=== PATIENT | male | born 1950 | race Caucasian/White ===

== ENCOUNTER 2017-02-17 13:30 | Day surgery (SDC) | payer MEDICARE, OTHER ==
[~2017-02-17] VITALS: Ht 180.3 cm; Wt 82.0 kg
[~2017-02-17 13:30] MED LIST: ASPI-973 PO; ATOR80TA PO; CHOL10008 PO; FLUT16SP NS; HYDR25TA4 PO; Lactated Ringer's 1,000 ML IV ONE
[2017-02-17] MEDS ORDERED: Propofol 10,000 mCg/mL 20 mL Inj ONE (13:31)
[2017-02-17 14:38] VITALS: BP 137/80; PULSE 55; O2SAT 98
[2017-02-17] MEDS ORDERED: Lactated Ringer's 1,000 ML IV SCH (15:29)
[2017-02-17] MEDS ORDERED: Ondansetron 2 mg/mL 2 mL Inj IVPUSH PRN (15:30)
[2017-02-17] MEDS ORDERED: MetoCLOpramide 5 mg/mL 2 mL Inj IVPUSH PRN (15:30)
[2017-02-17 15:41] VITALS: BP 124/77; PULSE 53; RESP 16; O2SAT 98
[2017-02-17 15:51] VITALS: BP 134/76; PULSE 49; O2SAT 99
[2017-02-17 15:55] VITALS: BP 137/83; PULSE 47; RESP 16; O2SAT 99
--- NOTE | 2017-02-17 17:24 | PCM.ANEP1 ---
Post Anesthesia PACU Phase 1 Assessment Vital Signs Vital Signs Date Time Temp Pulse Resp B/P Pulse Ox O2 Delivery O2 Flow Rate FiO2 02/17/17 15:55 47 16 137/83 99 Room Air 02/17/17 15:51 49 134/76 99 Room Air 02/17/17 15:41 36.1 53 16 124/77 98 Room Air 02/17/17 14:38 55 137/80 98 Room Air Anesthetic Administered: MAC Level of Alertness: Awake, talking WRIGHT's with Equal Strength: Yes Pain: No Nausea or Vomiting: No CV Function and Hydration: No Airway Device: none Oxygen Delivery: Room Air Lungs: Normal Air Movement Dermatome Level: Full Sensation PACU Phase 2 Assessment Complications: No Follow up Care: N/A Patient Instructions Provided: N/A Jose Castillo MD February 17, 2017 17:24
--- NOTE | 2017-02-17 17:24 | PCM.HPANE ---
Patient Data Surgeon Admitting Provider: Attending Provider:Lisa Joseph MD Primary Care Physician:Saritha Sullivan MD Other Provider:Jero Escamilla Anesthesia Reason for Visit Adenomatous Polyp Of Colon Ht/WT & BMI Body Mass Index Allergies Coded Allergies: No Known Drug Allergies (Verified Allergy, Unknown, 02/16/17) Past Anesthesia History Anesthesia History: Denies:: Abnormal Airway, Anesthesia Reactions, Difficult Intubation, Fam Anesthesia Reaction, Fam Malignant Hypertherm, Malignant Hyperthermia Medications Reported Medications Cholecalciferol (Vitamin D3) (Vitamin D3)1,000 Unit Tab.chew1,000 Unit PO 02/16/17 Hydrochlorothiazide 25 Mg [id number] Mg PO DAILY 30 Days Ref 0 02/16/17 Atorvastatin (Lipitor)80 Mg Enivnj16 Mg PO DAILY Ref 0 02/16/17 Aspirin 81 Mg Kodgqm97 Mg PO DAILY Ref 0 02/16/17 Discontinued Reported Medications Fluticasone Propionate (Fluticasone Propionate Nasal)16 Gm [place].susp2 [place] NS BID #16 GM Ref 0 02/16/17 History History of ENT Problems?: No HEENT History: Denies:: Abnormal Airway Cataracts Difficult Intubation Dysphagia Glaucoma Hearing Problem Sinus Problem TMJ Denture Type: None Teeth Condition: Within Normal Limits Hx of Heart Problems?: No Cardiovascular History: Denies:: AICD Abdominal Aortic Aneurism Atrial Fibrillation Cardiac Surgery Chest Pain Congestive Heart Failure Coronary Artery Disease Edema Heart Murmur Hypertension Irregular Heartbeat Pacemaker Peripheral Vascular Rheumatic Fever Thrombophlebitis Valvular Heart Disease Hx of Respiratory Problem?: No Respiratory History: Denies:: Asthma COPD Chest Surgery Cough Dyspnea Emphysema Hemoptysis Oxygen Administration Pneumonia Pulmonary Embolism Tuberculosis Use of C-PAP Machine Use of Inhalers / NEBS Hx Neurologic Problems?: No Neurological History: Denies:: Alzheimer's Disease CVA Dementia Dizziness Headaches Multiple Sclerosis Parkinson's Disease Peripheral Neuropathy Seizures TIA Hx of GI Problems?: No Gastrointestinal History: Denies:: Cirrhosis Diverticulitis Gall Bladder Disease Gastroesphageal Reflux Gastrointestinal Bleeding Heartburn Hepatitis Hiatal Hernia Liver Disease Rectal Bleeding Hx of Problems?: No Genitourinary History: Denies:: HX of Hemodialysis Kidney Stones Urinary Tract Infection HX of Peritoneal Dialysis: No Male Hx: Denies:: Prostate Problems Scrotal Mass Testicular Surgery Skin History: Denies:: History Skin Disorders? Pressure Ulcers Hx Musculoskeletal Problems?: No Musculoskeletal History: Denies:: Back Injury Degenerative Joint Fibromyalgia Joint Replacement Musculoskeletal Trauma Myasthenia Gravis Osteoarthritis Rheumatoid Arthritis Systemic Lupus Hx of Psycho/Social Problems?: No Psycho Social History: Denies:: Anxiety Bipolar Disorder Hx Depression Suicide Attempt Hx Surgeries?: No Hx Any Other Health Problems?: No Other History: Denies:: Cancer Endocrine Disease Hospitalization Thyroid Disease History Blood Transfusions: Denies:: Accept Blood Products? Blood Transfuse Reaction Blood Transfusions Hx Diabetes: No Hx Alcohol Use: NoHave You Smoked inLast 12 mo: No Stop/Bang Risk Assessment Category Category 1A: Patient has history of documented sleep apnea, and HAS NOT received any narcotic, sedative or anesthesia administration during this stay. Category 1B: Patient has history of documented sleep apnea, and HAS received any narcotic , sedative or anesthesia administration during this stay Category 2: Patient has SUSPECTED Obstructive Sleep Apnea, and HAS received any narcotic , sedative or anesthesia administration during this stay. Category 3: Patient has SUSPECTED Obstructive Sleep Apnea and HAS NOT received narcotic, sedative or anesthesia administration during this stay. Category 4: Outpatient in Procedural Areas with known sleep apnea or who screen positive for High Risk via the STOP/BANG questionnaire. Exam Exam General Appearance: Alert, Oriented X3, Cooperative, No Acute Distress HEENT/AIRWAY: MP 2, Neck Movement (FROM), Mouth Opening (3 FBMO) Lungs: Normal Air Movement Heart: Regular Rate/Rhythm Plan Impression Patient chart reviewed, patient interviewed and anesthestic plan with risks, benefits, and alternatives discussed, and informed consent obtained. NPO per Anesth. Guidelines: Yes ASA Physical Status: ASA2 Mod Systemic Disease Anesthetic Plan: MAC Bene/Risks/Altern/Consents: Yes HP Complete Prior to Induction: Yes Jose Castillo MD February 17, 2017 07:23
--- NOTE | 2017-02-18 10:59 | ENDO ---
[address] [address] ENDOSCOPY PROCEDURE PATIENT: KAT MACIAS : 1950 MR#: [id number] ADMIT: 02/17/2017 JOB ID: [id number] DATE OF SERVICE: 02/17/2017 PROCEDURE PERFORMED: Colonoscopy. INDICATIONS: Patient with a history of colon polyp. ASA CLASSIFICATION, MALLAMPATI SCORE AND MEDICATIONS: The patient's ASA classification, Mallampati score and medications as per Dr. Homer Castillo's anesthesia report. INSTRUMENT USED: [id number]. PREPARATION QUALITY: Fair. PROCEDURE DETAILS: After informed consent was obtained, the patient was brought into the GI suite, where he was placed on oxygen via nasal cannula and monitored with continuous pulse oximeter, telemetry, and blood pressure monitoring. A time-out was performed. Then, he was placed in the left lateral decubitus position and medications were administered for sedation. Digital rectal exam was performed which was unremarkable. The colonoscope was then inserted into the rectum and advanced under direct visualization to the cecum, which was identified by the presence of the ileocecal valve and appendiceal orifice. Once the cecum was reached, the colonoscope was withdrawn back into the rectum, as the mucosa and lumen were examined. In the rectum, retroflexion was performed. Following retroflexion, remaining air in the rectum was suctioned, and procedure was completed. FINDINGS: 1. There was a diminutive polyp in the transverse colon that was removed with a cold biopsy forceps. 2. Scattered diverticula were seen throughout the left side of the colon. IMPRESSION: 1. Transverse colon polyp. 2. Left-sided diverticulosis. RECOMMENDATIONS: 1. Fiber-rich diet. 2. Repeat colonoscopy in five years. COMPLICATIONS: None. ESTIMATED BLOOD LOSS: Less than 5 mL.
--- NOTE | 2017-02-21 10:31 | PATH ---
SURGICAL PATHOLOGY Attending Physician:Autumn Vazquez CASE STATUS: Signed Out PATIENT NAME: KAT MACIAS PID: [id number] : 1950 DATE COLLECTED:02/17/2017 00:00 SPECIMEN: Colon, Biopsy CLINICAL HISTORY: 1. TRANSVERSE POLYP X1 FINAL DIAGNOSIS: 1.TRANSVERSE COLON POLYP: TUBULAR ADENOMA. ICD10 CODE D12.3 GROSS DESCRIPTION: The specimen is received in one formalin filled container labeled with the patient's name, sublabeled "transverse polyp" and consists of a 0.2 x 0.2 x 0.2 CM portion of tissue which is entirely submitted in one cassette. 02/18/2017 DAC MICRO DESCRIPTION: See diagnosis. ICD-9 CODES: CPT CODES: 1: 84086 Electronically Signed Out Enio Walker MD [facility] Pathology [facility] [address] [facility], [place] [address] Technical component performed at [facility], [address] [place] [address] Ave[address], [place], [address]
== END 2017-02-17 23:59 | disposition home or self-care (01) ==
LOC: END 13:30
PROVIDERS: ATTEND Internal Medicine Gastroenterology
DX: Z12.11 Encounter for screening for malignant neoplasm of colon (principal); D12.3 Benign neoplasm of transverse colon; Z86.010 Personal history of colon polyps; Z72.89 Other problems related to lifestyle; I10 Essential (primary) hypertension; R73.03 Prediabetes; Z79.82 Long term (current) use of aspirin; K57.30 Diverticulosis of large intestine without perforation or abscess without bleeding
CPT/HCPCS: 45380; 88305; J7120